=== PATIENT | male | born 1940 | race Caucasian/White ===

== ENCOUNTER 2017-11-12 11:30 | Outpatient (CLI) | payer MEDICARE ==
--- NOTE | 2017-11-12 12:15 | SJPRAD ---
PA AND LATERAL CHEST: History: Post therapeutic collapse of lung status. Comparison: 10-11-15 FINDINGS: Heart size is within normal limits. There are atherosclerotic changes of the aorta. Lungs show some p arenchymal scarring and surgical chain type sutures in the right lung base. No interval change from t he prior exam. Deformity to the right posterior fifth rib is again noted. IMPRESSION: Stable exam. Stable post op changes of the right chest. POS: [facility]
== END 2017-11-12 11:31 | disposition home or self-care (01) ==
LOC: MWLC RAD 11:30
PROVIDERS: ATTEND Family Medicine
DX: Z48.813 Encounter for surgical aftercare following surgery on the respiratory system (principal); Z98.3 Post therapeutic collapse of lung status

== ENCOUNTER 2018-02-01 13:48 | Emergency (ER) | payer MEDICARE, MEDICAID ==
[2018-02-01 14:57] LABS: #Eosinphils 0.3 thou/uL (0.0-0.7); #Lymphocytes 1.1 thou/uL (1.20-3.40); #Monocytes 0.4 thou/uL (0.11-0.59); #Neutrophils 6.1 thou/uL (1.40-6.50); %Basophils 0.2 % (0.0-1.0); %Eosinophils 3.5 % (0.0-10.0); %Lymphocytes 14.3 % (21.0-51.0); %Monocytes 5.4 % (0.0-10.0); %Neutrophils 76.6 % (42.0-75.0); Hemoglobin 17.1 g/dL (14.0-18.0); Mean Corpuscular HGB CONC 33.8 g/dL (32.0-36.0); Mean Corpuscular Hemoglobin 31.7 pg (27.0-31.0); Mean Corpuscular Volume 93.9 fl (80.0-94.0); Mean Platelet Volume 7.3 fL (7.4-10.4); Platelet Count 165 thou/uL (130-400); RBC Distribution Width 12.5 % (11.5-14.5)
[2018-02-01 15:24] LABS: ALT (SGPT) 25 U/L (8-55); AST (SGOT) 22 U/L (5-34); Alkaline Phosphatase 74 U/L (40-150); Anion Gap 15 mmol/L (10-20); BUN (Urea Nitrogen) 21 mg/dL (8.4-25.7); Bilirubin, Total 1.4 mg/dL (0.2-1.2); Calc. Creatinine Clearance 0 mL/min (70-130); Calcium 8.8 mg/dL (7.8-10.44); Carbon Dioxide 26 mmol/L (23-31); Chloride 100 mmol/L (98-107); Estimated GFR-MDRD 64; Globulin 3.5 g/dL (2.4-3.5); Glucose 111 mg/dL (83-110); Potassium 3.5 mmol/L (3.5-5.1); Protein, Total 7.5 g/dL (5.8-8.1); Sodium 137 mmol/L (136-145)
[2018-02-01 17:50] LABS: CK (CPK) 76 U/L (30-200); Lipase 127 U/L (8-78)
[2018-02-01 17:55] LABS: CKMB 0.7 ng/mL (0-6.6); Troponin I 0.014 ng/mL (< 0.028)
[2018-02-01 18:11] LABS: Bilirubin Negative (Negative); Blood, Urine Negative (Negative); Clarity CLOUDY (Clear); Glucose, Urine (Dipstick) Negative (Negative); Leukocyte Moderate (Negative); Nitrite Positive (Negative); Protein, Urine (Dipstick) Trace mg/dL (Neg-Trace); Specific Gravity, Urine 1.019 (1.002-1.036); pH, Urine 7.5 (5.0-9.0)
--- NOTE | 2018-02-01 18:11 | RAD ---
PORTABLE CHEST: History: Chest pain. Comparison: Two view exam, 11-12-17 FINDINGS: Elevated right hemidiaphragm is again noted. Interstitial markings and stranding in the lower lungs a gain seen. There is a radiopaque suture in the right lower lung indicating prior right lobectomy expl aining the elevated hemidiaphragm. There is no evidence of vascular congestion or focal infiltrate. H eart size is mildly prominent but stable. IMPRESSION: No acute finding. POS: [facility]
[2018-02-01 18:13] LABS: Hyaline Casts/LPF 0-3 HYALINE CAST LPF (0-3 Hyaline); Pathc Cast-AUWi Flag 0.27 (0-2.49); Squamous Epithelial 0-3 HPF (0-3)
[2018-02-01 18:23] LABS: Bacteria/HPF 2+ HPF (None Seen)
[2018-02-01] MEDS ORDERED: cefTRIAXone\\ROCEPHIN 2 GM in Sodium Chloride 0.9% 100 ML IVPB SCH (18:45)
--- NOTE | 2018-02-28 01:25 | EKG ---
Test Reason : Blood Pressure : / mmHG Vent. Rate : 095 BPM Atrial Rate : 094 BPM P-R Int : 000 ms QRS Dur : 154 ms QT Int : 450 ms P-R-T Axes : 000 -36 030 degrees QTc Int : 565 ms Wide QRS rhythm Left axis deviation Right bundle branch block Inferior infarct , age undetermined Abnormal ECG Confirmed by PLACIDO THAKUR, ENRRIQUE ([id number]), video effects editor [employer] DELGADO ([id number]) on 02/28/2018 1:25:27 AM Referred By: Confirmed By:ENRRIQUE CUMMINS MD
== END 2018-02-01 19:54 | disposition home or self-care (01) ==
LOC: ERS 13:48
DX: N39.0 Urinary tract infection, site not specified (principal); I25.10 Atherosclerotic heart disease of native coronary artery without angina pectoris; E78.5 Hyperlipidemia, unspecified; I10 Essential (primary) hypertension; F17.220 Nicotine dependence, chewing tobacco, uncomplicated; Z85.118 Personal history of other malignant neoplasm of bronchus and lung; Z85.46 Personal history of malignant neoplasm of prostate; Z79.82 Long term (current) use of aspirin; Z79.899 Other long term (current) drug therapy
CPT/HCPCS: 36415; 71045; 80053; 81003; 81015; 82553; 83605; 83690; 83880; 84484; 85025; 87077; 87086; 87186; 87804; 93005; 96365; J0696; J7050

== ENCOUNTER 2019-10-06 12:14 | Emergency (ER) | payer MEDICARE, OTHER | END 2019-10-06 12:48 | disposition home or self-care (01) | LOC: SCSER 12:14 | DX: L02.31 Cutaneous abscess of buttock (principal); I25.10 Atherosclerotic heart disease of native coronary artery without angina pectoris; E78.5 Hyperlipidemia, unspecified; E78.00 Pure hypercholesterolemia, unspecified; I10 Essential (primary) hypertension; F17.220 Nicotine dependence, chewing tobacco, uncomplicated; Z85.46 Personal history of malignant neoplasm of prostate; Z85.118 Personal history of other malignant neoplasm of bronchus and lung; Z87.442 Personal history of urinary calculi | CPT/HCPCS: 10060 ==

== ENCOUNTER 2019-10-10 10:43 | Emergency (ER) | payer MEDICARE, OTHER | END 2019-10-10 11:20 | disposition home or self-care (01) | LOC: SCSER 10:43 | DX: Z48.817 Encounter for surgical aftercare following surgery on the skin and subcutaneous tissue (principal); I25.10 Atherosclerotic heart disease of native coronary artery without angina pectoris; E78.5 Hyperlipidemia, unspecified; E78.00 Pure hypercholesterolemia, unspecified; I10 Essential (primary) hypertension; F17.220 Nicotine dependence, chewing tobacco, uncomplicated; Z79.899 Other long term (current) drug therapy; Z95.5 Presence of coronary angioplasty implant and graft | CPT/HCPCS: 99282 ==